=== PATIENT | female | born 1935 | race Caucasian/White ===

== ENCOUNTER 2018-07-11 12:37 | Day surgery (SDC) | payer MEDICARE, BC ==
[~2018-07-11] VITALS: Ht 157.5 cm; Wt 59.1 kg
--- NOTE | ~2018-07-11 | OP ---
PATIENT NAME: CONOR SHAY MEDICAL RECORD: [id number] :33 LOCATION:D.OPS ADMISSION DATE: SURGEON: ZAKIA GAO MD DATE OF OPERATION: 07/11/2018 PROCEDURE: Colonoscopy with biopsy. ARMED SECURITY OFFICER: Zakia Gao MD SCOPE: Olympus video colonoscope. MEDICATIONS: Per TIVA anesthesia. The indication for TIVA is severe COPD. The patient continues to actively smoke cigarettes. INDICATION FOR THE PROCEDURE: Change in bowel pattern with diarrhea. FINDINGS: Informed consent was given. The patient was made comfortable with the above medications. After reaching an adequate level of sedation by slow IV push, the patient was placed on her left side. The endoscope was then advanced under direct visualization through the rectum to the cecum, where the ileocecal valve and appendiceal orifice were identified. On withdrawal of the scope, mucosa was carefully inspected. The patient had normal mucosa throughout, also with left-sided diverticulosis without diverticulitis to a very mild degree. In the rectum and on retroflexion, the patient was seen to have very few internal hemorrhoids. The scope was then withdrawn. It should be noted that the patient had adhesions as well as spasm. IMPRESSION: 1. Normal cecum, IC valve, and appendiceal orifice identified. 2. Adhesions adding to the difficulty of this procedure. 3. Spasm associated with irritable bowel syndrome. 4. Internal hemorrhoids. 5. External hemorrhoids. 6. The patient had normal mucosa throughout; however, a biopsy was taken within the rectum looking for microscopic colitis that is collagenous colitis, lymphocytic colitis, or eosinophilic colitis. Stool was also collected for parasites, bacteria, and viruses. TRANSINT:[id number] Voice Confirmation ID: [id number] DOCUMENT ID: [id number] ZAKIA GAO MD at 1215 CC: NANCY LOCK [id number] DICTATION DATE: 07/11/18 1506 ACCREDITATION MANAGER: 07/11/18 1523 [facility] 07/11/[address] [id number]
[2018-07-11 13:01] LABS: BASOPHILS 0.5 % (0-2); EOSINOPHILS 1.4 % (0-7); HEMATOCRIT 48.6 % (36.0-48.0); IMMATURE GRANULOCYTES 0.2 % (0-5); LYMPHOCYTES 24.2 % (15-50); MCH 32.4 pg (26.0-34.0); MCV 92.6 fL (80.0-100.0); MEAN PLATELET VOLUME 9.6 fL (7.4-10.4); MONOCYTES 10.5 % (2-11); NEUTROPHILS 63.2 % (40-80); PLATELET COUNT 244 10x3/uL (130-400); RBC 5.25 10x6/uL (4.00-5.40); RDW 13.4 % (11.5-14.5); WBC 6.4 10x3/uL (4.8-10.8)
[2018-07-11 13:15] LABS: ANION GAP 14.1 mmol/L (8-16); CALCIUM 9.3 mg/dL (8.5-10.1); CREATININE - SERUM 0.8 mg/dL (0.6-1.3); POTASSIUM - SERUM 4.1 mmol/L (3.5-5.1)
[2018-07-11] MEDS ORDERED: VENTOLIN HFA 90 MCG (13:37)
[2018-07-11] MEDS ORDERED: CELEXA20 MG PO (13:37)
[2018-07-11] MEDS ORDERED: REVATIO20 MG PO (13:38)
[2018-07-11] MEDS ORDERED: PEPCID AC20 MG PO (13:40)
[2018-07-11] MEDS ORDERED: BAYER CHEWABLE81 MG PO (13:41)
[2018-07-11] MEDS ORDERED: MUCINEX600 MG PO (13:42)
[2018-07-11] MEDS ORDERED: HYDROCHLOROTHIA25 MG PO (13:42)
[2018-07-11] MEDS ORDERED: ANORO ELLIPTA1 EACH INH (13:43)
[2018-07-11 14:03] VITALS: BP 141/67; Ht 157.5 cm; Wt 59.1 kg
== END 2018-07-11 16:20 | disposition home or self-care (01) ==
LOC: D.OPS 12:37
PROVIDERS: Anesthesiology
DX: K58.9 Irritable bowel syndrome, unspecified (principal); K64.8 Other hemorrhoids; K64.4 Residual hemorrhoidal skin tags; K66.0 Peritoneal adhesions (postprocedural) (postinfection); J44.9 Chronic obstructive pulmonary disease, unspecified; F17.210 Nicotine dependence, cigarettes, uncomplicated; Z01.812 Encounter for preprocedural laboratory examination